=== PATIENT | male | born 1980 | race Caucasian/White ===

== ENCOUNTER 2022-12-12 07:08 | Outpatient (REF) | payer OTHER, SELFPAY ==
[2022-12-12 10:34] LABS: MANUAL DIFF FLAG NO
[2022-12-12 10:47] LABS: Basophils Absolute Auto 0.1 X10*3/uL (0.0-0.2); Eosinophils Absolute Auto 0.3 X10*3/uL (0.0-0.4); Eosinophils Percent Auto 5.1 % (0-4); Hematocrit 40.2 % (42.0-52.0); Hemoglobin 13.4 g/dl (14.0-18.0); Imm Gran Abs Auto 0.01 X10*3/uL (0.00-0.03); Imm Gran Pct Auto 0.2 % (0.0-0.4); Lymphocytes Percent Auto 40.8 % (20-40); Mean Corpuscular HGB Conc 33.3 g/dl (31.0-36.0); Mean Corpuscular Hemoglobin 29.8 pg (27.0-33.0); Mean Corpuscular Volume 89.3 fL (80.0-98.0); Mean Platelet Volume 10.3 fL (9.4-12.4); Monocytes Absolute Auto 0.5 X10*3/uL (0.1-1.2); Monocytes Percent Auto 10.5 % (2-11); Neutrophils Absolute Auto 2.1 x10*3/uL (2.0-8.3); Neutrophils Percent Auto 42.4 % (45-73); Platelet Count 223 X10*3/uL (160-400)
[2022-12-12 11:26] LABS: Appearance Urine Clear; Color Urine Yellow; Glucose Urine UA Negative (Negative); Leukocyte Esterase Urine Negative (Negative); Nitrite Urine Negative (Negative); PH 5.5 (5.0-9.0); Specific Gravity - Urine 1.025 (1.005-1.025); UMIC TRIGGER UA YES; Urine Blood Negative (Negative); Urine Ketones Negative (Negative); Urine Protein 30 (1+) mg/dL (Neg-Trace)
[2022-12-12 11:29] LABS: Bacteria Urine None Seen (None Seen); Hyaline Casts Urine 0-2 /LPF (0-2); RBC Urine 0-2 /HPF (0-2); Squamous Epithelial Cell Urine 0-2 /HPF (0-2); WBC Urine 0-5 /HPF (0-5)
[2022-12-12 12:27] LABS: Creatinine Urine 197.63 mg/dL; Microalbum/Creatinine Ratio Ur 9.1 ug/mg cr
[2022-12-12 13:09] LABS: Alanine Aminotransferase 66 U/L (0-40); Albumin Level 4.3 g/dL (3.5-5.0); Alkaline Phosphatase 53 U/L (39-117); Anion Gap 10 (12-20); Aspartate Amino Transferase 34 U/L (5-37); Bilirubin Total 0.5 mg/dL (0.0-1.0); Blood Urea Nitrogen 16 mg/dL (9-16); Calcium 8.7 mg/dL (8.4-10.2); Carbon Dioxide 27 mmol/L (22-29); Chloride 105 mmol/L (96-108); Cholesterol 219 mg/dL; Estimated Glomerular Filt Rate > 60; Glucose Fasting 97 mg/dL (60-99); HDL Cholesterol 44 mg/dL; LDL Cholesterol Calculated 143 mg/dl; Sodium 138 mmol/L (135-145); Total Protein 6.5 g/dL (6.5-8.0); Triglycerides 161 mg/dL
[2022-12-12 13:29] LABS: Prostate Specific Antigen Scr 0.68 ng/mL (<0.05-4.0); TSH reflex Free T4 2.41 uIU/mL (0.32-4.0)
== END 2022-12-12 07:09 | disposition home or self-care (01) ==
LOC: HO.WFDLDS 07:08
PROVIDERS: Visit Provider Family Medicine
DX: Z00.00 Encounter for general adult medical examination without abnormal findings (principal); Z12.5 Encounter for screening for malignant neoplasm of prostate; I10 Essential (primary) hypertension
CPT/HCPCS: 36415; 80053; 80061; 81001; 82043; 84153; 84443; 85025

== ENCOUNTER 2023-03-31 07:37 | Outpatient (REF) | payer OTHER, SELFPAY ==
[2023-03-31 11:14] LABS: MANUAL DIFF FLAG NO
[2023-03-31 11:34] LABS: Basophils Absolute Auto 0.1 X10*3/uL (0.0-0.2); Basophils Percent Auto 1.6 % (0-2); Eosinophils Absolute Auto 0.2 X10*3/uL (0.0-0.4); Eosinophils Percent Auto 4.3 % (0-4); Hematocrit 40.5 % (42.0-52.0); Hemoglobin 13.8 g/dl (14.0-18.0); Imm Gran Abs Auto 0.01 X10*3/uL (0.00-0.03); Imm Gran Pct Auto 0.2 % (0.0-0.4); Immature Retic Fraction 10.7 % (2.3-13.4); Lymphocytes Absolute Auto 2.8 X10*3/uL (1.2-4.9); Lymphocytes Percent Auto 49.7 % (20-40); Mean Corpuscular HGB Conc 34.1 g/dl (31.0-36.0); Mean Corpuscular Hemoglobin 30.4 pg (27.0-33.0); Mean Corpuscular Volume 89.2 fL (80.0-98.0); Monocytes Absolute Auto 0.6 X10*3/uL (0.1-1.2); Neutrophils Absolute Auto 1.9 x10*3/uL (2.0-8.3); Neutrophils Percent Auto 34.2 % (45-73); Platelet Count 258 X10*3/uL (160-400); Red Blood Count 4.54 X10*6/uL (4.60-5.80); Red Cell Distribution Width 12.3 % (11.0-16.0); Retic HGB Equivalent 36.5 pg (30.0-35.0); Reticulocyte Percent 2.2 % (0.5-1.8); Reticulocytes Absolute 0.099 X10*6/uL (0.026-0.095); White Blood Count 5.6 X10*3/uL (4.8-10.8)
[2023-03-31 13:11] LABS: Alanine Aminotransferase 60 U/L (0-40); Albumin Level 4.5 g/dL (3.5-5.0); Alkaline Phosphatase 48 U/L (39-117); Anion Gap 14 (12-20); Aspartate Amino Transferase 29 U/L (5-37); Bilirubin Total 1.3 mg/dL (0.0-1.0); Blood Urea Nitrogen 18 mg/dL (9-16); Calcium 9.4 mg/dL (8.4-10.2); Carbon Dioxide 24 mmol/L (22-29); Chloride 106 mmol/L (96-108); Estimated Glomerular Filt Rate > 60; Glucose Random 98 mg/dL (60-115); Iron 164 mcg/dL (45-160); Percent Iron Saturation 57 % (15-50); Potassium 4.5 mmol/L (3.3-5.1); Sodium 139 mmol/L (135-145); Total Iron Binding Capacity 289 mcg/dL (228-428); Total Protein 6.8 g/dL (6.5-8.0); Unsaturated Iron Binding 125 ug/dL
[2023-03-31 13:21] LABS: Ferritin 191 ng/mL (20-250); Folate 15.8 ng/mL (> or = 4.0); Vitamin B12 785 pg/mL (200-900)
== END 2023-03-31 07:38 | disposition home or self-care (01) ==
LOC: HO.WFDLDS 07:37
PROVIDERS: Visit Provider Family Medicine
DX: Z00.00 Encounter for general adult medical examination without abnormal findings (principal); R74.01 Elevation of levels of liver transaminase levels; E53.8 Deficiency of other specified B group vitamins; D64.9 Anemia, unspecified
CPT/HCPCS: 36415; 80053; 82607; 82728; 82746; 83540; 85025; 85045

== ENCOUNTER → 2023-04-09 09:52 | Outpatient (BNVA) | payer OTHER, SELFPAY | PROVIDERS: PCP Family Medicine; Visit Provider Urology | DX: L80 Vitiligo (principal) | CPT/HCPCS: 99202 ==

== ENCOUNTER 2023-06-11 08:35 | Outpatient (REF) | payer OTHER, SELFPAY ==
[2023-06-11 11:15] LABS: MANUAL DIFF FLAG NO
[2023-06-11 11:35] LABS: Basophils Absolute Auto 0.1 X10*3/uL (0.0-0.2); Basophils Percent Auto 1.3 % (0-2); Eosinophils Absolute Auto 0.4 X10*3/uL (0.0-0.4); Eosinophils Percent Auto 5.9 % (0-4); Hemoglobin 13.4 g/dl (14.0-18.0); Imm Gran Abs Auto 0.02 X10*3/uL (0.00-0.03); Imm Gran Pct Auto 0.3 % (0.0-0.4); Lymphocytes Percent Auto 29.3 % (20-40); Mean Corpuscular HGB Conc 33.5 g/dl (31.0-36.0); Mean Corpuscular Hemoglobin 30.9 pg (27.0-33.0); Mean Corpuscular Volume 92.4 fL (80.0-98.0); Monocytes Absolute Auto 0.7 X10*3/uL (0.1-1.2); Monocytes Percent Auto 9.7 % (2-11); Neutrophils Absolute Auto 3.6 x10*3/uL (2.0-8.3); Neutrophils Percent Auto 53.5 % (45-73); Platelet Count 270 X10*3/uL (160-400); Red Blood Count 4.33 X10*6/uL (4.60-5.80); Red Cell Distribution Width 12.7 % (11.0-16.0); White Blood Count 6.7 X10*3/uL (4.8-10.8)
[2023-06-11 12:19] LABS: Erythrocyte Sedimentation Rate 2 MM/HR (0-15)
[2023-06-11 12:30] LABS: Alanine Aminotransferase 35 U/L (0-40); Albumin Level 4.2 g/dL (3.5-5.0); Alkaline Phosphatase 52 U/L (39-117); Anion Gap 15 (12-20); Aspartate Amino Transferase 22 U/L (5-37); Bilirubin Total 0.8 mg/dL (0.0-1.0); Blood Urea Nitrogen 20 mg/dL (9-16); Calcium 9.6 mg/dL (8.4-10.2); Carbon Dioxide 21 mmol/L (22-29); Chloride 108 mmol/L (96-108); Cholesterol 208 mg/dL; Estimated Glomerular Filt Rate > 60; Glucose Fasting 127 mg/dL (60-99); HDL Cholesterol 51 mg/dL; LDL Cholesterol Calculated 125 mg/dl; Potassium 4.5 mmol/L (3.3-5.1); Sodium 139 mmol/L (135-145); Total Protein 6.7 g/dL (6.5-8.0); Triglycerides 161 mg/dL
[2023-06-16 16:13] LABS: CRP High Sensitivity 0.3 mg/L
[2023-06-18 10:44] LABS: Anti Nuclear Antibody Screen NEGATIVE (NEGATIVE)
== END 2023-06-11 08:36 | disposition home or self-care (01) ==
LOC: HO.WFDLDS 08:35
PROVIDERS: Visit Provider Family Medicine
DX: Z00.00 Encounter for general adult medical examination without abnormal findings (principal); E78.2 Mixed hyperlipidemia; D64.9 Anemia, unspecified; R74.01 Elevation of levels of liver transaminase levels
CPT/HCPCS: 36415; 80053; 80061; 85025; 85652; 86038; 86141

== ENCOUNTER 2023-06-16 09:51 | Outpatient (AMB) | payer OTHER, SELFPAY ==
--- NOTE | 2023-06-16 09:56 | A.OFFPC_ITS ---
Vital Signs 06/16/23 09:57 Height 5 ft 7 in Weight 236 lb BMI 37.0 BP 122/72 Blood Pressure Location Lt brachial Position Sitting Pulse 55 Pulse Source Pulse Oximeter Pulse Oximetry (%) 98 Oxygen Delivery Method Room Air Intake Visit Reasons: f/u mild anemia and hyperlipidemia Intake Note: Patient is here to follow up on blood work. Patient complains of itchiness between fingers of right hand. Allergies No Known Allergies Allergy (Verified 06/16/23 10:00) Tobacco use date assessed: 06/16/23 Dental Screening Dental Screen Date: 06/16/23 Did you have a dental visit in the last 12 months?: Yes Did you have a dental problem in the last 6 months where you did not have access to dental care?: No Was dental information given to patient?: No HPI f/u mild anemia and hyperlipidemia HPI Details 42 y/o male presents to f/u mild anemia and hyperlipidemia. Labs were drawn 06/11/23. Reviewed labs with pt. Ongoing mild anemia. Iron levels had been high. Bilirubin is within normal range. Triglycerides 161. TC 208. LDL 125. HDL 51. A1c today 06/16/23 5.7% - pre-diabetes range. He has complaints of dermatitis. HPI Comments History of Present Illness Details Documentation assistance for Kevin Fuentes MD, was provided by Clint Leonardo, [employer] on 06/16/2023 10:32 AM LORELE[place]. Stoney, Dr. Fuentes, have read, observed, and verified documentation. [facility] Social History Housing: House Patient Tobacco Use Status: Current everyday Tobacco user Cigarettes Per Day: 6 e-Cigarette/Vaping Use: Never Used Second Hand Smoke Exposure: No service: No Current occupational status: employed Current occupational exposures/hazards: No Cognitive needs: No Hearing needs: No Vision needs: No Questionnaire Thrive Questionnaire Date Thrive assessed: 12/11/22 Review of Systems Const Denies chills, Denies fatigue, Denies fever(s), Denies headache(s) and Denies weakness ENT Denies dizziness and Denies headache(s) Card Denies dyspnea Resp Denies cough, Denies dyspnea, Denies wheezing and Denies other (shortness of breath) Musc Denies numbness and Denies tingling Skin/Breast Reports rash Neuro Denies dizziness, Denies headache(s), Denies numbness, Denies tingling and Denies weakness Psych Denies anxiety and Denies depression Endo Denies fatigue Aller/Immun Denies wheezing Physical exam (Primary Care) Vital Signs: Last Vital Signs Pulse 55 06/16/23 09:57 BP 122/72 06/16/23 09:57 Pulse Ox 98 06/16/23 09:57 Oxygen Delivery Method Room Air 06/16/23 09:57 BMI result Body Mass Index 37.0 Tobacco/Smoking Status: Tobacco use Status Tobacco use date assessed 06/16/23 06/16/23 10:04 Patient Tobacco Use Status Current everyday Tobacco 06/16/23 10:04 e-Cigarette/Vaping Use Never Used 06/16/23 10:04 Thrive Assessment: Date of Thrive Assessment Date Thrive assessed 12/11/22 06/16/23 10:04 Const General: well developed; No acute distress Nutritional Appearance: well nourished and obese Orientation/consciousness: patient oriented x3 HENMT Head: Yes normocephalic and Yes atraumatic Eyes General: appearance normal, both eyes and all related structures Pupils: Equal, round and reactive pupils present EOM: EOMs intact bilaterally Resp Effort & Inspection: normal respiratory effort Auscultation: clear to auscultation bilaterally Cardio Rate: regular rate Rhythm: regular rhythm Heart sounds: S1 normal heart sound present, S2 normal heart sound present, no gallops, no murmurs and no rubs Skin Other: Dermatitis on bilateral hands and fingers Neuro General: patient oriented x3 and gait normal Cranial nerves: Yes Equal, round and reactive pupils present Psych Affect: normal affect Results AMB Hemoglobin A1c AMB Hemoglobin A1c 5.7 % Last Edit by Frieda Mcdaniel on 06/16/23 10:1 7 Results Reviewed Results Reviewed: Laboratory Last Values Hgb A1c (Clinic) 5.7 % (4.0-6.0) 06/16/23 10:16 Assessment and Plan Assessment & Plan (1) Mixed hyperlipidemia: Code(s): E78.2 - Mixed hyperlipidemia Plan: Much improved with lifestyle changes Continue to work at these lifestyle changes (2) Mild anemia: Code(s): D64.9 - Anemia, unspecified Plan: Persistent anemia Referred to Hematology-Oncology (3) Pre-diabetes: Code(s): R73.03 - Prediabetes Plan: Encouraged a diet lower in sugars and starches Will follow-up (4) Dermatitis: Code(s): L30.9 - Dermatitis, unspecified Plan: Likely contact dermatitis Keep hands moisturizer but avoid excess moisture Trial steroid ointment Orders: Referrals Hematology & Oncology Referral D64.9 - Anemia, unspecified Medications: New betamethasone valerate 0.1% 1 appl topical BID PRN 45 grams 2RF skin irritation 15 days Coding Level of Care Code Est Pt Level 4 (65362) Diagnoses Mixed hyperlipidemia E78.2 Mild anemia D64.9 Pre-diabetes R73.03 Dermatitis L30.9
[2023-06-16 09:57] VITALS: BP 122/72; PULSE 55; O2SAT 98; BMI 37.0
== END 2023-06-16 10:41 | disposition home or self-care (01) ==
PROVIDERS: Visit Provider Family Medicine
DX: E78.2 Mixed hyperlipidemia (principal); D64.9 Anemia, unspecified; R73.03 Prediabetes; L30.9 Dermatitis, unspecified
CPT/HCPCS: 99214

== ENCOUNTER → 2023-07-29 14:07 | Outpatient (BNV) | payer OTHER, SELFPAY | PROVIDERS: PCP Family Medicine; Referring Provider Family Medicine; Visit Provider Internal Medicine Medical Oncology | DX: D64.9 Anemia, unspecified (principal); R73.09 Other abnormal glucose | CPT/HCPCS: 99204; 99213 ==

== ENCOUNTER 2024-05-18 08:37 | Outpatient (AMB) | payer OTHER, SELFPAY ==
--- NOTE | 2024-05-18 09:04 | A.OFFVIS_ITS ---
Intake Visit Reasons: 1y follow up Intake Note: Patient is Present for Follow Up Genital Vitilgo- [facility] Medication:None Antibiotic Allergies:None Blood Thinners: None [employer] Program Director Required: No Allergies No Known Allergies Allergy (Verified 05/18/24 09:05) HPI Comments Details: Davie is a very pleasant [place] male. He is a patient of Dr. Fuentes. He seen for the following urologic conditions - vitiligo of genitals Yearly follow-up genital vitiligo Stable for exam Good response to tacrolimus Discussion again related to unknown cause for vitiligo Genital vitiligo Started at approximately age 40 Extends on left base of penis to suprapubic area and segmentally on left scrotum and left portion of perineum Evaluated with dermatology and current management with tacrolimus topical Reassurance provided Minimal impact on sexual activity He would like to review in 12 months [facility] Medical History Vitiligo Social History Household Members: Significant Other and Children Housing: House Patient Tobacco Use Status: Current everyday Tobacco user e-Cigarette/Vaping Use: Never Used Second Hand Smoke Exposure: No service: No Current occupational status: employed Current occupational exposures/hazards: No Cognitive needs: No Hearing needs: No Vision needs: No Review of Systems Const Denies chills and Denies fever(s) Card Reports no additional complaints and Denies syncope Resp Denies cough GI Denies abdominal pain and Denies heartburn Reports as per HPI and Denies change in libido Neuro Denies syncope Psych Denies change in libido Endo Denies change in libido Physical Exam Const General: cooperative, healthy appearing, comfortable and no acute distress Orientation/consciousness: patient oriented x3 HEENT Face and sinus: Yes normal facial exam Mouth: moist mucous membranes Neck Neck: Yes normal visual inspection, Yes full ROM and Yes trachea midline Chest Chest palpation & inspection: normal inspection of the chest Resp Effort & Inspection: normal respiratory effort, able to speak in complete sentences and no respiratory distress GI Inspection: Yes normal to inspection Back/Spine/Pelvis Cervical Spine: normal cervical lordosis Thoracic/Lumbar Spine: thoracic and lumbar spine normal to inspection Skin General skin exam: no rashes or lesions noted Neuro General: patient oriented x3, gait normal, tone normal and moves all extremities Extrem General: Yes normal to inspection and Yes capillary refill normal Assessment & Plan Assessment & Plan (1) Dermatitis: Code(s): L30.9 - Dermatitis, unspecified Category: Medical (2) Vitiligo: Code(s): L80 - Vitiligo Category: Medical Plan P.r.n. follow-up Patient Instructions: Imaging studies, laboratory and physical exam results were discussed and reviewed in detail. No major barriers to patient understanding were identified. An opportunity to ask questions regarding the treatment plan was provided. All questions were answered. The patient expressed understanding and agreement with the above treatment plan. The patient is aware they should contact our office by phone for worsening of their current condition or the appearance of new urologic symptoms. Compliance is encouraged with any medications and followup testing that is ordered. It is a privilege to participate in the urologic care of your patient. If you have any questions or concerns regarding treatment for the above conditions, or other urologic issues, please do not hesitate to contact me. The office telephone contact is [phone]. This note is constructed using voice recognition software. While every effort has been made to ensure accuracy gate shear operator errors may have been included. Yours sincerely, Dr Say Silveira MD, [facility] - Urology Providers of Expert, Compassionate Care for the Genitourinary System Coding Level of Care Code Est Pt Level 4 (67649) Diagnoses Dermatitis L30.9 Vitiligo L80
== END 2024-05-18 09:22 | disposition home or self-care (01) ==
PROVIDERS: PCP Family Medicine; Visit Provider Urology
DX: L30.9 Dermatitis, unspecified (principal); L80 Vitiligo
CPT/HCPCS: 99213

== ENCOUNTER → 2024-05-18 08:37 | Outpatient (BNVA) | payer OTHER, SELFPAY | PROVIDERS: PCP Family Medicine; Visit Provider Urology | DX: L80 Vitiligo (principal); L30.9 Dermatitis, unspecified | CPT/HCPCS: 99212 ==